=== PATIENT | female | born 1995 | race Caucasian/White ===

== ENCOUNTER → 2023-04-23 10:11 | Outpatient (CLI) | payer OTHER, SELFPAY ==
--- NOTE | 2023-04-23 10:14 | DI.US.S_ITS ---
PROCEDURE: US PELVIC COMPLETE INDICATIONS: BLEEDING TECHNIQUE: Real-time scanning was performed of the pelvic organs, with image documentation. Additional endovaginal scanning was necessary due to incomplete visualization of the adnexal and endometrial structures by transabdominal scanning. COMPARISON: None. FINDINGS: Uterus: Uterus is retroverted and normal in size at 8.8 x 5.5 x 6.6 cm. The myometrium is homogeneous. The endometrium measures 26 mm combined thickness. Heterogeneous endometrial echo complex. Ovaries: The right ovary measures 2.9 x 1.2 x 1.4 cm, with a calculated ovarian volume of 2.6 cc. The left ovary measures 3.9 x 1.9 x 2.7 cm, with a calculated ovarian volume of 10.2 cc. The ovaries have a normal sonographic appearance. Less than 12 follicles can be seen in each ovary. No adnexal masses are seen. Other: No pathologic free abdominal or pelvic fluid. IMPRESSION: 1. Thickened and heterogeneous endometrial echo complex measuring 26 mm. Consider endometrial sampling and short-term follow-up ultrasound. 2. The ovaries are normal in appearance. We strive to produce accurate, complete, and clear reports of imaging services. To assist us in improving patient care, this report was composed using standard report templates and voice recognition software. Therefore, it may contain abnormal punctuation, insertions and/or omissions. Occasional wrong-word or sound-alike substitutions may occur. Though we review the report and make efforts to correct it, we do recommend that the report be read carefully in proper context to recognize any text inaccuracies. Dictated by: Mina Mon M.D. on 04/23/2023 at 11:36 Approved by: Mina Mon M.D. on 04/23/2023 at 11:38
== END ==
PROVIDERS: PCP Family Medicine; Referring Provider Obstetrics & Gynecology; Visit Provider Obstetrics & Gynecology
DX: O20.9 Hemorrhage in early pregnancy, unspecified (principal); Z3A.09 9 weeks gestation of pregnancy
CPT/HCPCS: 76830; 76856; 93976

== ENCOUNTER → 2023-05-08 15:50 | Outpatient (CLI) | payer OTHER, SELFPAY ==
[2023-05-08 16:49] LABS: Add Manual Diff / Slide Review NO; Basophils Absolute Auto 100 /uL (0-100); Basophils Percent Auto 0.5 % (0-2); Eosinophils Absolute Auto 100 /uL (0-450); Eosinophils Percent Auto 1.4 % (2-4); Hemoglobin 10.3 g/dL (12.0-16.0); Lymphocytes Absolute Auto 1900 /uL (1100-4500); Lymphocytes Percent Auto 17.8 % (25-40); Mean Corpuscular HGB Conc 34.3 % (30-36); Mean Corpuscular Hemoglobin 28.4 PG (26-34); Mean Corpuscular Volume 82.7 fL (80-100); Monocytes Absolute Auto 800 /uL (0-900); Monocytes Percent Auto 7.8 % (3-14); Neutrophils Absolute Auto 7800 /uL (1500-7000); Neutrophils Percent Auto 72.5 % (50-75); Platelet Count 318 X10^3/uL (150-400); Red Blood Cell Count 3.62 X10^6/uL (4.0-5.2); Red Cell Distribution Width 13.1 % (11.6-14.8); White Blood Cell Count 10.7 X10^3/uL (4.5-11.0)
[2023-05-12 08:18] LABS: Factor VIII Activity 110 % (56-140); von Willebrand Activity 71 % (50-200); von Willebrand Antigen 96 % (50-200)
[2023-05-21 13:11] LABS: PTT 27.4
== END ==
PROVIDERS: PCP Family Medicine; Referring Provider Student in an Organized Health Care Education/Training Program; Visit Provider Student in an Organized Health Care Education/Training Program
DX: Z87.59 Personal history of other complications of pregnancy, childbirth and the puerperium (principal)
CPT/HCPCS: 36415; 85025; 85240; 85246; 85730

== ENCOUNTER 2023-05-10 08:13 | Day surgery (SDC) | payer OTHER, SELFPAY ==
--- NOTE | 2023-05-10 | PATH_ITS ---
[facility] Accession Number: [id number] No. of containers..01 Tissue . 01 Material submitted: . uterus - PRODUCTS OF UTERUS . 01 Diagnosis: Products Of Uterus: Poorly preserved products of conception identified. Most chorionic villi demonstrate necrotic changes. Background fibroinflammatory debris and scant portions of benign proliferative endometrium. [facility] 05/23/2023 1631 Local . 01 Electronically signed: . Maliha Linn MD, Pathologist NPI- [id number] . 01 Gross description: . The specimen is received in formalin, labeled with the patient's name, , and products of uterus, and consists of multiple navas, spongy soft tissue fragments admixed with hemorrhagic material aggregating to 6.4 x 6.0 x 2.1 cm. No tissue is identified. [employer]el[employer] sections are submitted in cassettes A1-A4. ([id number]) /FRR 05/11/2023 1856 Local . 01 Pathologist provided ICD-10: O02.89 . 01 CPT . 702135 Specimen Comment: A courtesy copy of this report has been sent to [facility] Pathology Performed at: 01 [facility] Cyt[facility] [address] [place] [address], [place], [place] [id number] MD Sergio Ray MD Phone: [phone]
[2023-05-10] MEDS: DOXYCYCLINE HYCLATE 100 MG TABLET 200 MG PO (08:46)
[2023-05-10 08:47] VITALS: BP 123/75; PULSE 102; RESP 17; TEMP 36.6; O2SAT 100
[2023-05-10] MEDS: LACTATED RINGERS 1,000 ML 42 ML IV (08:47)
--- NOTE | 2023-05-10 09:14 | SUR.OPER ---
Lithotomy on padded OR bed, head on pillow, arms secured on padded arm boards at <90 degrees abduction. Legs secured in padded yellow fins stirrups.
--- NOTE | 2023-05-10 09:14 | PM.PREOP ---
Pre-operative Note Interval Note History & Physical reviewed/Exam performed by Physician: Yes Changes to H&P: No H&P completed within 30 days and has changed as indicated here:: No changes since office encounter on 05/08/23. Pt desires to proceed with suction D&C.
[2023-05-10] MEDS: SILVER NITRATE STICK 1 EACH TOP (09:55)
[2023-05-10] MEDS: TRANEXAMIC ACID 1,000 MG in SODIUM CHLORIDE 0.9% 100 ML 200 MG IV (09:56)
[2023-05-10 10:05] VITALS: BP 123/85; PULSE 112; RESP 17; TEMP 36.3; O2SAT 100
[2023-05-10 10:10] VITALS: BP 117/84; PULSE 100; RESP 12; O2SAT 100
[2023-05-10 10:15] VITALS: BP 116/79; PULSE 100; RESP 14; TEMP 36.1; O2SAT 100
--- NOTE | 2023-05-10 12:26 | P.OP_ITS ---
Operative Date/Time/Diagnoses Date of procedure: 05/10/23 Time of procedure: 09:30 Pre-op diagnosis: Spontaneous with suspected retained products of conception Heavy vaginal bleeding Post-op diagnosis: same Procedure & Clinicians Procedure: Suction dilation and curettage Same procedure as scheduled: Yes Indications: 27yo [id number] s/p SAB at home on 04/22/23. She reports continuing to have significant bleeding, yesterday she passed several palm-sized clots. She feels tired and nauseous sometimes. Changing a pad every 2-3hrs. She states that she had significant hemorrhage after her delivery, requiring transfusion and multiple uterine sweeps hours after delivery. She also had heavy periods in the past, with one period lasting 9mo. She denies any family hx of bleeding disorders as far as she is aware. Surgeon: Luisana Brantley Click Yes if Unassisted: Yes Anesthesia Type: General Operative Notes Findings: Moderate amount of tissue and clot evacuated from the uterus. Uterine bleeding was slow at the end of the case. Specimen(s): other (uterine contents) Estimated Blood Loss (mL): 100 Blood products transfused: none Procedure in detail: The risks, benefits, indications and alternatives of the procedure were reviewed with the patient and informed consent was obtained. The pt was taken to the operating room where general anesthesia with LMA was obtained without difficulty. The pt was then placed in the low lithotomy position using gel- padded Audie Stirrups. The pt was then prepped and draped in the sterile fashion. A sterile speculum was placed in the patient?s vagina and the cervix was visualized.? A single tooth tenaculum was used to grasp the anterior lip of the cervix. The cervix was already dilated to allow a 7mm curved curette. This was then introduced into the uterine cavity and gently advanced to the uterine fundu s. The suction device was then activated to 60mmHg and the catheter was rotated to clear the uterus of products of conception. Several passes were performed with a moderate amount of tissue & clot obtained. All tissue was sent to pathology for review. The single tooth tenaculum was then removed from the anterior lip of the cervix. The tenaculum sites were noted to be hemostatic with pressure and silver nitrate. Given her bleeding history, and continued slow bleeding from the uterus, she was given 1g TXA IV. All instruments were then removed from the patient?s vagina. At the completion of the case the sponge and needle counts were correct x 2. The patient tolerated the procedure well and was taken to the PACU in stable condition. Complications: none Post-operative Condition: stable Disposition: PACU Plan for aftercare: Follow-up in 2-3 weeks in the clinic.
== END 2023-05-10 10:42 | disposition home or self-care (01) ==
PROVIDERS: PCP Family Medicine; Referring Provider Student in an Organized Health Care Education/Training Program; Visit Provider Student in an Organized Health Care Education/Training Program
PROC: (CPT 58120; principal; 2023-05-10 09:15)
DX: O03.1 Delayed or excessive hemorrhage following incomplete spontaneous abortion (principal); O90.81 Anemia of the puerperium; D62 Acute posthemorrhagic anemia; O02.89 Other abnormal products of conception
CPT/HCPCS: 59812; 86850; 86870; 86900; 86901; J1100; J2250; J2405; J2704; J3010

== ENCOUNTER → 2023-06-22 12:31 | Outpatient (CLI) | payer OTHER, SELFPAY | PROVIDERS: PCP Family Medicine; Referring Provider Student in an Organized Health Care Education/Training Program; Visit Provider Student in an Organized Health Care Education/Training Program | DX: N96 Recurrent pregnancy loss (principal) | CPT/HCPCS: 36415; 82397 ==

== ENCOUNTER → 2023-09-19 10:12 | Outpatient (CLI) | payer OTHER, SELFPAY ==
[2023-09-19 15:15] LABS: Urine N gonorrhoeae NOT DETECTED
[2023-09-19 15:19] LABS: Urine Chlamydia NOT DETECTED
== END ==
PROVIDERS: PCP Family Medicine; Visit Provider Student in an Organized Health Care Education/Training Program
DX: Z11.3 Encounter for screening for infections with a predominantly sexual mode of transmission (principal); Z34.81 Encounter for supervision of other normal pregnancy, first trimester; Z3A.09 9 weeks gestation of pregnancy
CPT/HCPCS: 87491; 87591

== ENCOUNTER → 2023-10-09 10:29 | Outpatient (CLI) | payer OTHER, SELFPAY ==
[2023-10-09 11:45] LABS: Add Manual Diff / Slide Review NO; Basophils Absolute Auto 0 /uL (0-100); Basophils Percent Auto 0.4 % (0-2); Eosinophils Absolute Auto 100 /uL (0-450); Eosinophils Percent Auto 1.3 % (2-4); Hematocrit 35.3 % (36-46); Hemoglobin 11.2 g/dL (12.0-16.0); Lymphocytes Absolute Auto 1400 /uL (1100-4500); Lymphocytes Percent Auto 15.2 % (25-40); Mean Corpuscular HGB Conc 31.8 % (30-36); Mean Corpuscular Volume 69.4 fL (80-100); Monocytes Absolute Auto 800 /uL (0-900); Monocytes Percent Auto 8.7 % (3-14); Neutrophils Absolute Auto 6700 /uL (1500-7000); Neutrophils Percent Auto 74.4 % (50-75); Platelet Count 273 X10^3/uL (150-400); Red Blood Cell Count 5.09 X10^6/uL (4.0-5.2)
[2023-10-09 11:58] LABS: Natera Collection Specimen Collected
[2023-10-09 11:59] LABS: Alanine Aminotransferase 13 IU/L (<35); Aspartate Aminotransferase 23 IU/L (14-36); BUN Creatinine Ratio 12.1 (6-22); Blood Urea Nitrogen 7 mg/dL (7-17); Estimated Glomerular Filt Rate > 60 mL/min (>60); Uric Acid 3.2 mg/dL (2.5-6.2)
[2023-10-09 12:11] LABS: Anisocytosis 2+; Microcytosis 1+
[2023-10-09 12:12] LABS: Ovalocytes 1+
[2023-10-09 12:26] LABS: Thyroid Stimulating Hormone 1.14 uIU/mL (0.47-4.68)
[2023-10-10 09:28] LABS: RPR Screen Non Reactive (Non Reactive); Varicella IgG Antibody 830 index (Immune >165)
[2023-10-10 16:38] LABS: Hepatitis B Surface Antigen NEGATIVE s/c (NEGATIVE); Rubella Antibody IgG > 350.0 IU/mL (>15)
[2023-10-10 16:55] LABS: HIV 1 & 2 Ab/Ag 4th Gen Combo NEGATIVE (NEGATIVE); Hep C Virus Ab w/Reflex Quant NEGATIVE s/c (NEGATIVE)
== END ==
LOC: LAB 10:30
PROVIDERS: PCP Family Medicine; Referring Provider Student in an Organized Health Care Education/Training Program; Visit Provider Student in an Organized Health Care Education/Training Program
DX: O09.299 Supervision of pregnancy with other poor reproductive or obstetric history, unspecified trimester (principal)
CPT/HCPCS: 36415; 80055; 82565; 84439; 84443; 84450; 84460; 84520; 84550; 86787; 86803; 86850; 86900; 86901; 87086; 87389

== ENCOUNTER → 2023-12-19 10:25 | Outpatient (CLI) | payer OTHER, SELFPAY | LOC: LAB 10:26 | PROVIDERS: PCP Family Medicine; Referring Provider Student in an Organized Health Care Education/Training Program; Visit Provider Student in an Organized Health Care Education/Training Program | DX: Z34.82 Encounter for supervision of other normal pregnancy, second trimester (principal); Z3A.16 16 weeks gestation of pregnancy | CPT/HCPCS: 36415; 82105 ==

== ENCOUNTER → 2024-01-25 08:28 | Outpatient (CLI) | payer OTHER, SELFPAY ==
[2024-01-25 09:46] LABS: Hematocrit 37.3 % (36-46); Hemoglobin 12.5 g/dL (12.0-16.0)
[2024-01-25 11:30] LABS: GTT (PREG) 1 Hour PP 50gm Dose 116 mg/dL (76-139)
== END ==
PROVIDERS: PCP Family Medicine; Referring Provider Student in an Organized Health Care Education/Training Program; Visit Provider Student in an Organized Health Care Education/Training Program
DX: Z34.82 Encounter for supervision of other normal pregnancy, second trimester (principal); Z3A.26 26 weeks gestation of pregnancy
CPT/HCPCS: 36415; 82950; 85014; 85018; 86850

== ENCOUNTER → 2024-02-17 06:43 | Outpatient (CLI) | payer OTHER, SELFPAY ==
--- NOTE | 2024-02-17 06:44 | DI.US.S_ITS ---
PROCEDURE: US OB LIMITED INDICATIONS: di/di twins, growth OUTSIDE/PRIOR DATING DATA: Last menstrual period (LMP): 07/24/2023. LMP-based estimated date of delivery (LEX): 04/23/2024. First dating scan (date and location): 09/19/2023. Estimated date of delivery (LEX) from first dating scan: 05/08/2024. The calculations are made using the ultrasound LEX of 05/08/2024. TECHNIQUE: Real-time scanning was performed of the fetuses, with image documentation and biometric measurements. Endovaginal scanning: Not performed COMPARISON: None. FINDINGS: General: An intrauterine dichorionic-diamniotic twin is present, as evidenced by separate placentas, differing sexes, or an intervening membrane of greater than 2 mm. Maternal cervical canal: 4 cm long. Normal lower limit is 2.5 cm. FETUS A: Fetus is located on the maternal left side, and is in breech presentation. Largest amniotic fluid pocket: 10.1 cm; normal range is 2-8 cm. Largest pocket 4.4 cm. Placental position is posterior, without previa. heart rate: 140 beats per minute. biometrics: Biparietal diameter: 7.7 cm, 31 weeks 0 days Head circumference: 28.4 cm, 31 weeks 1 day Abdominal circumference: 25.9 cm, 30 weeks 0 days Femur length: 5.9 cm, 30 weeks 4 days Clinically estimated gestational age: 29 weeks 6 days Composite gestational age from present scan: 30 weeks 5 days. Estimated weight and percentile: 1562 g, 56 percentile. FETUS B: Fetus is located on the maternal right side, and is in vertex presentation. Largest amniotic fluid pocket: 13.5 cm; normal range is 2-8 cm. Largest pocket 4.6 cm Placental position is posterior, without previa. heart rate: 132 beats per minute. biometrics: Biparietal diameter: 7.4 cm, 29 weeks 4 days Head circumference: 26.9 cm, 29 weeks 2 days Abdominal circumference: 24.7 cm, 28 weeks 6 days Femur length: 5.7 cm, 29 weeks 5 days Clinically estimated gestational age: 29 weeks 6 days Composite gestational age from present scan: 29 weeks 3 days. Estimated weight and percentile: 1360 g, 19th percentile. IMPRESSION: 1. Living intrauterine dichorionic diamniotic twin gestation . 2. Normal placentas and amniotic fluid. We strive to produce accurate, complete, and clear reports of imaging services. To assist us in improving patient care, this report was composed using standard report templates and voice recognition software. Therefore, it may contain abnormal punctuation, insertions and/or omissions. Occasional wrong-word or sound-alike substitutions may occur. Though we review the report and make efforts to correct it, we do recommend that the report be read carefully in proper context to recognize any text inaccuracies. Dictated by: Franklin Norwood M.D. on 02/17/2024 at 9:22 Approved by: Franklin Norwood M.D. on 02/17/2024 at 9:32
== END ==
LOC: US 06:43
PROVIDERS: PCP Family Medicine; Referring Provider Student in an Organized Health Care Education/Training Program; Visit Provider Student in an Organized Health Care Education/Training Program
DX: O30.043 Twin pregnancy, dichorionic/diamniotic, third trimester (principal); Z3A.29 29 weeks gestation of pregnancy
CPT/HCPCS: 76812; 76815

== ENCOUNTER → 2024-03-20 06:49 | Outpatient (CLI) | payer OTHER, SELFPAY ==
--- NOTE | 2024-03-20 06:50 | DI.US.S_ITS ---
PROCEDURE: US OB LIMITED INDICATIONS: DI/DI TWINS-REPEAT GROWTH OUTSIDE/PRIOR DATING DATA: Last menstrual period (LMP): 07/24/2023. LMP-based estimated date of delivery (LEX): 04/23/2024. First dating scan (date and location): 09/19/2023. Estimated date of delivery (LEX) from first dating scan: 04/28/2024. The calculations are made using the ultrasound LEX of 04/28/2024. TECHNIQUE: Real-time scanning was performed of the fetuses, with image documentation and biometric measurements. Endovaginal scanning: Not performed COMPARISON: [facility], OB LIMITED, 02/17/2024, 6:59. FINDINGS: General: An intrauterine dichorionic-diamniotic twin is present, as evidenced by separate placentas, differing sexes, or an intervening membrane of greater than 2 mm. Fetus A amniotic fluid index: 11.5 cm. Fetus B amniotic fluid index: 15.7 cm Maternal cervical canal: 4.7 cm long. Normal lower limit is 2.5 cm. FETUS A: Fetus is located on the maternal maternal left side, and is in vertex presentation. Largest amniotic fluid pocket: 5.6 cm, normal is 2-8 cm. Placental position is posterior , without previa. heart rate: 152 beats per minute. biometrics: Biparietal diameter: 8.8 cm, 35 weeks 5 days Head circumference: 32.1 cm, 36 weeks 1 day Abdominal circumference: 28.8 cm, 32 weeks 6 days Femur length: 6.4 cm, 33 weeks 2 days Clinically estimated gestational age: 34 weeks 3 days Composite gestational age from present scan: 34 weeks 4 days Estimated weight and percentile: 2215 g, 21st percentile FETUS B: Fetus is located on the maternal maternal right side, and is in vertex presentation. Largest amniotic fluid pocket: 5.2 cm, normal is 2-8 cm. Placental position is posterior, without previa. heart rate: 136 beats per minute. biometrics: Biparietal diameter: 8.3 cm, 33 weeks 2 days Head circumference: 30.1 cm, 34 weeks 1 day Abdominal circumference: 31.6 cm, 35 weeks 4 days Femur length: 6.5 cm, 33 weeks 4 days Clinically estimated gestational age: 34 weeks 3 days Composite gestational age from present scan: 34 weeks 1 day Estimated weight and percentile: 2484 g,52 percentile IMPRESSION: Living 3rd trimester twin intrauterine with no sonographic evidence of complications. Normal interval growth. We strive to produce accurate, complete, and clear reports of imaging services. To assist us in improving patient care, this report was composed using standard report templates and voice recognition software. Therefore, it may contain abnormal punctuation, insertions and/or omissions. Occasional wrong-word or sound-alike substitutions may occur. Though we review the report and make efforts to correct it, we do recommend that the report be read carefully in proper context to recognize any text inaccuracies. Dictated by: Jaspreet Mohamud M.D. on 03/20/2024 at 13:23 Approved by: Jaspreet Mohamud M.D. on 03/20/2024 at 13:31
== END ==
PROVIDERS: PCP Family Medicine; Referring Provider Student in an Organized Health Care Education/Training Program; Visit Provider Student in an Organized Health Care Education/Training Program
DX: O30.043 Twin pregnancy, dichorionic/diamniotic, third trimester (principal); Z3A.34 34 weeks gestation of pregnancy
CPT/HCPCS: 76812; 76815

== ENCOUNTER 2024-03-24 11:55 | Outpatient (CLI) | payer OTHER, SELFPAY | END 2024-03-24 12:45 | disposition home or self-care (01) | LOC: LABOR 12:30 → OB 03-26 08:16 | PROVIDERS: PCP Family Medicine; Referring Provider Student in an Organized Health Care Education/Training Program; Visit Provider Student in an Organized Health Care Education/Training Program | DX: O60.03 Preterm labor without delivery, third trimester (principal); O30.043 Twin pregnancy, dichorionic/diamniotic, third trimester; Z3A.35 35 weeks gestation of pregnancy | CPT/HCPCS: 59025; G0378; G0379 ==

== ENCOUNTER → 2024-03-30 09:41 | Outpatient (CLI) | payer OTHER, SELFPAY ==
[2024-03-31 09:21] LABS: Strep Grp B PCR NEG for Grp B Strep
== END ==
PROVIDERS: PCP Family Medicine; Visit Provider Student in an Organized Health Care Education/Training Program
DX: Z34.03 Encounter for supervision of normal first pregnancy, third trimester (principal); Z3A.35 35 weeks gestation of pregnancy
CPT/HCPCS: 87653

== ENCOUNTER 2024-03-30 09:53 | Outpatient (CLI) | payer OTHER, SELFPAY | END 2024-03-30 10:50 | disposition home or self-care (01) | LOC: OB 04-01 10:28 | PROVIDERS: PCP Family Medicine; Referring Provider Student in an Organized Health Care Education/Training Program; Visit Provider Student in an Organized Health Care Education/Training Program | DX: O30.003 Twin pregnancy, unspecified number of placenta and unspecified number of amniotic sacs, third trimester (principal); Z3A.35 35 weeks gestation of pregnancy | CPT/HCPCS: 59025; 87653; G0378; G0379 ==

== ENCOUNTER 2024-04-14 10:09 | Inpatient (IN) | payer OTHER, SELFPAY ==
[2024-04-14] VITALS (7 sets, daily range): BP systolic 103–141; BP diastolic 56–81; PULSE 85–104; RESP 12–18; TEMP 36.1–36.2; O2SAT 99–100
[2024-04-14] MEDS: LACTATED RINGERS 1,000 ML 999 ML IV ×2 (10:53→13:27)
[2024-04-14 10:58] LABS: Add Manual Diff / Slide Review NO; Basophils Absolute Auto 0 /uL (0-100); Basophils Percent Auto 0.2 % (0-2); Eosinophils Absolute Auto 100 /uL (0-450); Eosinophils Percent Auto 0.7 % (2-4); Hematocrit 42.6 % (36-46); Hemoglobin 14.5 g/dL (12.0-16.0); Lymphocytes Absolute Auto 1300 /uL (1100-4500); Mean Corpuscular HGB Conc 33.9 % (30-36); Mean Corpuscular Hemoglobin 30.4 PG (26-34); Mean Corpuscular Volume 89.7 fL (80-100); Monocytes Absolute Auto 1100 /uL (0-900); Monocytes Percent Auto 8.6 % (3-14); Neutrophils Absolute Auto 10400 /uL (1500-7000); Neutrophils Percent Auto 80.5 % (50-75); Platelet Count 185 X10^3/uL (150-400); Red Blood Cell Count 4.76 X10^6/uL (4.0-5.2); Red Cell Distribution Width 13.8 % (11.6-14.8); White Blood Cell Count 12.9 X10^3/uL (4.5-11.0)
[2024-04-14 11:34] LABS: Alanine Aminotransferase 12 IU/L (<35); Albumin 4.1 g/dL (3.5-5.0); Albumin Globulin Ratio 1.3 (1.0-2.8); Alkaline Phosphatase 209 U/L (38-126); Aspartate Aminotransferase 28 IU/L (14-36); BUN Creatinine Ratio 12.3 (6-22); Bilirubin Total 0.8 mg/dL (0.2-1.3); Blood Urea Nitrogen 7 mg/dL (7-17); Calcium 9.3 mg/dL (8.4-10.2); Carbon Dioxide 21 mmol/L (22-32); Chloride 105 mmol/L (98-107); Estimated Glomerular Filt Rate > 60 mL/min (>60); Globulin 3.2 g/dL (1.7-4.1); Glucose 79 mg/dL (70-100); HEMOLYSIS < 15 (0-50); Potassium 3.9 mmol/L (3.4-5.1); Sodium 133 mmol/L (137-145); Total Protein 7.3 g/dL (6.3-8.2)
--- NOTE | 2024-04-14 11:57 | P.HPOB_ITS ---
OB HPI Date/Time Date of admission: 04/14/24 Date Patient Seen: 04/14/24 Time Patient Seen: 11:58 History of Present Condition Chief complaint: Primary - Twins : 4 Para: 1 Estimated Date of Delivery: 04/28/24 Estimated Gestational Age (weeks): 38+0 Narrative: Sami Rosenberg is a 28 year old female Comments: admitted today for planned primary due to twin gestation. Pt reports feeling well, no complaints today. Indications Operative indications ( section): multiple gestation History of Present care: good care Dating criteria: LMP confirmed by 1st trimester US Ultrasounds: normal mid trimester US Obstetrical complications: none Medical complications: none Narrative: Ultrasound Ultrasound Details:: Dating 09/19/23: diamniotic, dichorionic twin gestation with thick intertwin membrane; baby A measuring 8+0wks with FHR 166; baby B measuring 8+2wks with FHR 172; normal appearing uterus and cervix Anatomy US with MFM 12/13/23: A- normal anatomy, posterior placenta, no EFW provided; B- normal anatomy, posterior placenta, EFW 38%ile Specific Issues/Plans [x] cfDNA- low risk, boy/girl (Chris, Blaze); [ x] MSAFP- neg Di/di twins--> [ x?] Twin meds (PNV, folic acid, ASA, iron, Ca/VitD);? [?x ] Level II sono- MFM referral;? [? x] Growth sonos q4wks (13% discordant 02/17, 11% discordant 03/23);? [?x ] Discuss delivery route/timing- likely ;? [?x ]? weekly NST/SDP (36 weeks if concordant, 32 weeks discordant);?[x] delivery at 38 weeks?(submitted surgical request for 04/14) Rh negative--> Rh negative, thus rhogam deferred at 28wks Prior Preeclampsia-->? [x ] 81mg ASA at 12wks--> increased to 162mg at 16wks;? [x? ] Baseline Pre-E labs & Pr/Cr ratio Hx of PPH with blood transfusion after VAVD--> consider T&C on admission in labor Sixto (works at [employer]) Assigned to Fercho Preadmission Labs Blood type: 0 (-) negative -: Antibody screen: negative, Cystic fibrosis screen: unknown, GBS status: negative, HBsAG: negative, HIV: negative, HSV 1: unknown, HSV 2: unknown and RPR/VDLR: negative -: Chlamydia screen: not detected and Gonorrhea screen: not detected -: Rubella: immune and Varicella: immune HCT: 42.6 HCAB: negative PAP: Normal 1 hr GTT: 116 Evaluation Evaluation Contraction Frequency (minutes): 4 Comments: Baby A- FHR 140, moderate variability, + accels, no decels Baby B- FHR 130, moderate variability, + accels, no decels PFSH Medical History (Updated 11/12/23 @ 11:49 by Luisana rBantley DO) Recurrent loss History of hemorrhage Spontaneous Anemia due to acute blood loss hemorrhage Irregular menses Preeclampsia Surgical History (Updated 04/01/23 @ 08:05 by Francine Gordon RN) [place] teeth extracted H/O exploratory laparotomy Family History (Updated 04/01/23 @ 08:08 by Francine Gordon, JEYSON) Father Diabetes mellitus Kidney failure Hypertension Heart attack Stroke Mother Heart attack Grandfather Heart attack Social History marital status: number of children: 1 household members: spouse and children lives independently: Yes caregiver/support person: Yes housing: house pets and animals: Yes (2 dogs) education level: college occupational status: employed current occupational exposures/hazards: No special jose needs: No travel history: recent seatbelt use: always water heater temp set < 120 deg: Yes working smoke detector in home: Yes fire extinguisher in home: Yes carbon monox detector in home: Yes firearms in home: No do you feel safe at home: Yes Smoking Status: Never smoker second hand exposure: No alcohol intake: former substance use type: does not use during the past year weight has: increased > 10 lbs well-balanced diet: about half the time daily servings fruits/ve-4 caffeine: Yes (1 cup coffee in AM) Type(s) of exercise: walking and weight lifting frequency: 3-4 times per week Meds Home Medications and Allergies Home Medications Medication Instructions Recorded Confirmed Type docosahexaenoic acid 200 mg See Rx Instructions .Route .COMPLEX 10/17/23 04/14/24 History capsule ( DHA) ferrous sulfate 137 mg (45 mg See Rx Instructions .Route .COMPLEX 10/17/23 04/14/24 History iron) tablet,extended release (Slow Fe) [id number] antigen-AS01E 0.5 ml IM ONCE mother #1 03/24/24 04/14/24 Rx adjuvant(PF) 120 mcg/0.5 mL IM ea suspension, kit Allergies Allergy/AdvReac Type Severity Reaction Status Date / Time No Known Drug Allergies Allergy Verified 04/14/24 11:19 Review of Systems Review of Systems ROS: Yes All systems reviewed with the patient and are negative except as otherwise documented OB Exam Vital signs Blood Pressure: 132/80 Pulse Rate: 104 Temperature: 97.0 F HENMT Head: normal to inspection Resp Effort & Inspection: normal respiratory effort and able to speak in complete sentences Extremities Lower extremity: Yes normal to inspection GI Other: gravid, nontender, nondistended Objective Labs 04/14/24 10:30 04/14/24 10:30 Labs: Laboratory Results - last 24 hr 04/14/24 10:30 WBC 12.9 H RBC 4.76 Hgb 14.5 Hct 42.6 MCV 89.7 MCH 30.4 MCHC 33.9 RDW 13.8 Plt Count 185 Neut % (Auto) 80.5 H Lymph % (Auto) 10.0 L Powell % (Auto) 8.6 Eos % (Auto) 0.7 L Baso % (Auto) 0.2 Neut # (Auto) 01288 H Lymph # (Auto) 1300 Powell # (Auto) 1100 H Eos # (Auto) 100 Baso # (Auto) 0 Sodium 133 L Potassium 3.9 Chloride 105 Carbon Dioxide 21 L BUN 7 Creatinine 0.57 Estimated GFR > 60 BUN/Creatinine Ratio 12.3 Glucose 79 Calcium 9.3 Total Bilirubin 0.8 AST 28 ALT 12 Alkaline Phosphatase 209 H Total Protein 7.3 Albumin 4.1 Globulin 3.2 Albumin/Globulin Ratio 1.3 Blood Type O Negative Antibody Screen Negative Crossmatch See Detail Assessment and Plan Assessment and Plan Assessment and Plan narrative: 28yo at 38+0wks admitted for planned primary due to twin gestation. -CBC, T&C on admission -NST on admission -plan for neuraxial anesthesia -2g Ancef for ppx -PPH risk high given hx of PPH with transfusion, delivery, and twin gestation; typed & crossed for 2 units, with [address] -VTE risk low, SCDs with epidural -will move to OR for delivery once all teams ready counseling: It was explained to the patient that a section is a surgery to deliver the baby through an incision in the abdominal wall and uterus.? All procedures can be associated with risk and unforeseen complications, which can be immediate or delayed.? Risks and complications of section include, but are not limited to:? infection of the uterus, pelvic organs, or skin; inadvertent injury to internal organs such as the bowel, bladder, or possibly even the baby; blood loss, transfusion, and/or life-threatening hemorrhage requiring hysterectomy; blood clots in the legs, pelvic organs, or lungs; adverse reaction to medications or anesthesia during surgery; development of placenta accreta spectrum in a subsequent ; and increased risk of section in a subsequent . Time-Based Coding :: [20min] spent with patient and on the chart (including review of chart, obtaining history, exam, reviewing outside data, placing orders, documenting exam and treatment plan, and counseling patient) on [04/14/24].
[2024-04-14] MEDS: CITRIC ACID/SODIUM CITRATE 15 ML SOLUTION 30 ML PO (12:08)
--- NOTE | 2024-04-14 12:09 | SUR.OPER ---
Supine on padded OR bed, head on pillow, arms secured on padded arm boards at <90 degrees abduction, legs uncrossed, safety belt at thigh, tape over blanket over lower legs. BUMP UNDER PATIENTS RIGHT HIP
[2024-04-14] MEDS: CEFAZOLIN 2 GM/100 ML PREMIX 100 ML IV (12:43)
--- NOTE | 2024-04-14 13:44 | PM.OBCS.1 ---
Operative Date/Time/Diagnoses Date of procedure: 04/14/24 Time of procedure: 13:00 Pre-op diagnosis: 1. Dichorionic diamniotic twin gestation at 38+0 weeks 2. History of pre-eclampsia 3. History of hemorrhage 4. History of vacuum assisted vaginal delivery 5. Recurrent loss Post-op diagnosis: same Procedure & Clinicians Procedure: Primary low transverse section Same procedure as scheduled: Yes Indications: 28yo at 38+0wks with di/di twins, counseled and consented for primary delivery given multiple gestation with unstable lie of the twins. Surgeon: Luisana Brantley Click Yes if Unassisted: No Lagging Machine Operator: Ronda Cosme Reason for Lagging Machine Operator: Lagging Machine Operator was necessary for timely, efficient, and safe completion of the procedure. Anesthesia Type: Spinal Operative Notes Findings: Normal-appearing uterus and bilateral fallopian tubes and ovaries. Clear fluid noted with delivery of baby A, which was a viable male infant in breech presentation with APGARs 8/9 and weighing 2827g. Clear fluid noted with delivery of baby B, which was a viable female infant in breech presentation with APGARs 9/9 and weighing 2719g. Specimen(s): cord blood Intraoperative meds administered: Duramorph, Ketorolac and Tranexamic acid Applied: Catheter Estimated Blood Loss (mL): 900 (QBL 1049) Blood products transfused: none Procedure in detail: The risks, benefits, indications and alternatives of the procedure were reviewed with the patient and informed consent was obtained. The patient was taken to the operating room where spinal anesthesia was obtained without difficulty and was found to be adequate. Sequential compression devices were placed bilaterally for VTE prophylaxis. She was then prepped and draped in the normal, sterile fashion in the dorsal supine position with a leftward tilt. She received 2g Ancef for surgical prophylaxis, as well as 1g of TXA prophylactically. A Pfannenstiel skin incision was then made with the scalpel and carried through to the underlying layer of fascia. The fascia was digitally. The rectus muscles were then at the midline. The peritoneum was identified, and entered digitally. The peritoneal incision was then extended horizontally, superiorly and inferiorly, with good visualization of the bladder. The bladder blade was then inserted. The lower uterine segment was incised in a transverse fashion with the scalpel. The uterine incision was then extended manually in a cephalad/caudad direction. The amniotic sac of baby A was artificially ruptured, productive of clear fluid. The bladder blade was then removed. The infant?s feet were grasped and brought through the hysterotomy. A blue towel was placed around the sacrum and Loveset?s maneuver was performed to the level of the scapula.? The bilateral arms were swept and delivered followed by the head using the Wnztvolzb-Tswgene-Lhqp maneuver. The cord was doubly clamped and cut after a 60sec delay with the infant handed off to the waiting pediatrics team. The amniotic sac of baby B was then artificially ruptured, productive of clear fluid. The ?s feet were grasped and brought through the hysterotomy. A blue towel was placed around the sacrum and Loveset?s maneuver was performed to the level of the scapula.? The bilateral arms were swept and delivered followed by the head using the Oyreixjva-Gvxvaxf-Hxcq maneuver. The cord was doubly clamped and cut after a 60sec delay with the handed off to the waiting pediatrics team. The placentas were then removed spontaneously with gentle traction on the umbilical cords. The uterus was then exteriorized and cleared of all clots and debris. The uterine incision was repaired with 0-vicryl in a running, locked fashion. A second layer using 0-monocryl was then used to imbricate the hysterotomy with excellent hemostasis achieved. The uterus was returned to the abdomen, and a small area of bleeding was noted at the left side of the hysterotomy, which was suture ligated with a figure of eight. The hysterotomy was then noted to be hemostatic. The paracolic gutters were cleared of all clot and debris. The fascia was reapproximated with 0-vicryl in a running fashion. The subcutaneous layer was closed with 3-0 vicryl in simple, interrupted sutures. The skin was closed with 4-0 monocryl in a subcuticular fashion. The incision was then dressed with steri-strips and an Aquacel dressing was applied. At the completion of the case, a Crede maneuver was performed with good uterine tone and minimal vaginal bleeding noted.? The patient tolerated the procedure well. Sponge, lap and needle counts were correct x3. The patient was taken to the recovery room in stable condition. Complications: none Post-operative Condition: stable Disposition: PACU Aftercare: routine postop
[2024-04-14] MEDS: METHYLERGONOVINE 0.2 MG TABLET PO (15:55)
[2024-04-14] MEDS: LACTATED RINGERS 1,000 ML 100 ML IV (16:08)
[2024-04-14] MEDS: LANOLIN OINT 7 GM 1 APPLIC TOP (16:22)
--- NOTE | 2024-04-14 17:23 | PATH_ITS ---
[facility] Accession Number: [id number] No. of containers..01 Tissue . 01 Material submitted: . placenta - PLACENTA . 01 Clinical history: . DI/DI OR MONO/DI? . 01 Diagnosis: PLACENTA: Intact, fused twin placenta (735 grams). Diamniotic-dichorionic twin placenta. Larger portion of placenta with eccentrically inserted umbilical cord with the following features: - Villous architecture consistent with third trimester gestational age. - membranes; negative for chorioamnionitis or features of meconium staining. - Eccentrically inserted three vessel umbilical cord; negative for true knots, thrombi, funisitis or arteritis. Smaller portion of placenta with the following features: - Villous architecture consistent with third trimester gestational age. - membranes; negative for chorioamnionitis or features of meconium staining. - Centrally inserted three vessel umbilical cord; negative for true knots, thrombi, funisitis, or arteritis. No villitis, features of abruption or infarction. MRV 04/17/2024 1348 Local . 01 Electronically signed: . Amber Churchill MD, Pathologist NPI- [id number] . 01 Gross description: . Received in formalin with two identifiers and no site on jar, is a fused twin placenta with no clips or other identifying markers (735 grams, 24.4 x 19.1 x 1.6 cm) with a dividing membrane located approximately 60/40 with the larger portion arbitrarily designated baby A. The placenta has an ovoid appearance. . The membranes for both placentas are navas and translucent with no discoloration or thickening identified. A possible point of rupture is located 3.1 cm from the nearest placental disc edge of placenta B. The membranes insert at the margin. . Cord A (31.2 x 1.3 cm) inserts eccentrically 2.5 cm from the nearest placental disc edge with an index of approximately one twist per 5 cm. . Cord B (35.6 x 1.3 cm) inserts marginally and has leftward coil with an index of approximately two twists per 5 cm. Both cords are trivascular and unremarkable with no lesions identified. . The surface A is blue-serna with normal arborizing vasculature and white areas of discoloratoin located centrally occupying approximately 10% of the surface. surface B is blue-serna with normal arborizing vasculature and no lesions identified. . The maternal surface is apparently complete with diffuse white gritty areas consistent with calcification and no hemorrhage or lesions identified. The cut surfaces are red and spongy with no discolorations identified. . Compressor Technician sections are submitted as follows: A1: Baby A membrane roll and placental end of cord. A2: Baby A membrane roll and end of cord. A3: Baby B membrane roll and placental end of cord. A4: Baby B membrane roll and end of cord. A5: Dividing membrane. A6: Placenta A and maternal surface discoloration. A7-A8: Central full thickness unremarkable placents A. A9-A10: Central full thickness unremarkable placenta B. ([id number]) /[facility] 04/17/[address] [place] [address] . 01 Pathologist provided ICD-10: O43.90 . 01 CPT . 702659 Specimen Comment: A courtesy copy of this report has been sent to [facility] Pathology Performed at: [address] [facility], [place], [place] [id number] MD Sergio Ray MD Phone: [phone]
[2024-04-14] MEDS: ACETAMINOPHEN 325 MG TABLET 650 MG PO (19:26)
[2024-04-14] MEDS: KETOROLAC 30 MG/ML VIAL IV (19:27)
[2024-04-15] MEDS: LACTATED RINGERS 1,000 ML 100 ML IV (01:31)
[2024-04-15] MEDS: diphenhydrAMINE 50 MG/ML VIAL 25 MG IV ×2 (01:32→04:45)
[2024-04-15] MEDS: KETOROLAC 30 MG/ML VIAL IV ×2 (01:32→07:41)
[2024-04-15] MEDS: ACETAMINOPHEN 325 MG TABLET 650 MG PO ×4 (01:33→21:14)
[2024-04-15] MEDS: BUTORPHANOL 1 MG/ML VIAL 0.5 MG IV (05:16)
[2024-04-15 06:21] LABS: Add Manual Diff / Slide Review NO; Basophils Absolute Auto 0 /uL (0-100); Basophils Percent Auto 0.1 % (0-2); Eosinophils Absolute Auto 0 /uL (0-450); Eosinophils Percent Auto 0.3 % (2-4); Hematocrit 29.4 % (36-46); Lymphocytes Absolute Auto 1700 /uL (1100-4500); Lymphocytes Percent Auto 10.4 % (25-40); Mean Corpuscular HGB Conc 34.1 % (30-36); Mean Corpuscular Hemoglobin 30.4 PG (26-34); Mean Corpuscular Volume 89.2 fL (80-100); Monocytes Absolute Auto 1900 /uL (0-900); Monocytes Percent Auto 12.1 % (3-14); Neutrophils Absolute Auto 12200 /uL (1500-7000); Neutrophils Percent Auto 77.1 % (50-75); Platelet Count 156 X10^3/uL (150-400); Red Blood Cell Count 3.29 X10^6/uL (4.0-5.2); Red Cell Distribution Width 13.7 % (11.6-14.8); White Blood Cell Count 15.9 X10^3/uL (4.5-11.0)
--- NOTE | 2024-04-15 07:37 | PM.OBPN.1 ---
Subjective - OB Subjective Patient comments: pain well controlled and tolerating diet [place] baby status: doing well and nursing well [place] feeding status: exclusively breast feeding Narrative: Pt sitting on side of bed, states pain is well controlled, no longer experiencing lightheadedness or dizziness with stand/ambulation JAELEON per RN, tolerating diet, +ROBF Date Patient Seen: 04/15/24 Time Patient Seen: 07:30 Exam Vital Signs (past 8 hours): Oxygen Delivery Method Room Air Const General: cooperative and comfortable Orientation: alert, awake and oriented x3 Limitations: mental status not altered Chest Chest: normal inspection of the chest Resp Effort & Inspection: normal respiratory effort and able to speak in complete sentences Cardio Pulses: normal peripheral pulses GI Palpation: soft Other: incision c/d/i fundus firm << Umb Other: deferred, tolentino OUT Skin General: no rashes or lesions noted and pallor Neuro General: patient alert, patient awake and patient oriented x3 Extrem General: normal to inspection Psych Mental Status: mental status grossly normal Judgment: judgment good Objective Labs 04/15/24 06:10 04/14/24 10:30 Labs: Laboratory Results - last 24 hr 04/14/24 04/15/24 10:30 06:10 WBC 12.9 H 15.9 H RBC 4.76 3.29 L Hgb 14.5 10.0 L Hct 42.6 29.4 L MCV 89.7 89.2 MCH 30.4 30.4 MCHC 33.9 34.1 RDW 13.8 13.7 Plt Count 185 156 Neut % (Auto) 80.5 H 77.1 H Lymph % (Auto) 10.0 L 10.4 L [place] % (Auto) 8.6 12.1 Eos % (Auto) 0.7 L 0.3 L Baso % (Auto) 0.2 0.1 Neut # (Auto) 59751 H 32627 H Lymph # (Auto) 1300 1700 [place] # (Auto) 1100 H 1900 H Eos # (Auto) 100 0 Baso # (Auto) 0 0 Sodium 133 L Potassium 3.9 Chloride 105 Carbon Dioxide 21 L BUN 7 Creatinine 0.57 Estimated GFR > 60 BUN/Creatinine Ratio 12.3 Glucose 79 Calcium 9.3 Total Bilirubin 0.8 AST 28 ALT 12 Alkaline Phosphatase 209 H Total Protein 7.3 Albumin 4.1 Globulin 3.2 Albumin/Globulin Ratio 1.3 Blood Type O Negative Antibody Screen Negative Crossmatch See Detail Assessment & Plan Plan day: 1 plan OB: routine care and routine postop care Comments: 28yo POD1 s/p 1LTCS di/di TIUP, doing well Postop/ routine care, fully advanced with +ROBF Mild acute blood loss anemia without concern for active bleeding, pt initially symptomatic with first ambulation but this has resolved with euvolemia; continue to monitor, reassess for consideration of IV iron infusion in AM prior to discharge as indicated encouraged ambulation, abd binder, support PRN anticipate dc to home POD2-3 pending clinical course Time-Based Coding :: [TOTAL MINUTES] spent with patient and on the chart (including review of chart, obtaining history, exam, reviewing outside data, placing orders, documenting exam and treatment plan, and counseling patient) on [DATE].
[2024-04-15] MEDS: PRENATAL VIT,CALC/IRON/FOLIC 1 TABLET 1 TAB PO (09:05)
[2024-04-15] MEDS: DOCUSATE 100 MG CAPSULE PO (09:05)
[2024-04-15] MEDS: IBUPROFEN 600 MG TABLET PO ×2 (15:14→21:15)
[2024-04-15] MEDS: OXYCODONE IR 5 MG TABLET PO ×2 (18:50→23:11)
[2024-04-16] MEDS: ACETAMINOPHEN 325 MG TABLET 650 MG PO ×3 (03:07→15:11)
[2024-04-16] MEDS: OXYCODONE IR 5 MG TABLET PO ×3 (03:08→15:12)
[2024-04-16] MEDS: IBUPROFEN 600 MG TABLET PO ×3 (03:08→15:12)
[2024-04-16] MEDS: DOCUSATE 100 MG CAPSULE PO (07:29)
[2024-04-16] MEDS: PRENATAL VIT,CALC/IRON/FOLIC 1 TABLET 1 TAB PO (07:29)
--- NOTE | 2024-04-16 11:06 | P.DS_ITS ---
Discharge Providers Provider Date of admission: 04/14/24 10:09 Discharge Date: 04/16/24 Primary care physician: Cornell Ballard MD Consults: 04/14/24 14:19 Consult to Director Data Architecture Routine Comment: Discharge provider: Luisana Brantley DO Summary Hospital Course Date Patient Seen: 04/16/24 Time Patient Seen: 10:30 Diagnoses: Term dichorionic diamniotic twin gestation at 38+0wks malpresentation History of hemorrhage History of pre-eclampsia Hospital Course: 28yo [id number] admitted at 38+0wks for primary delivery. Her delivery was uncomplicated, and productive of a two viable infants, male and female. Her course was notable for asymptomatic anemia. On post-op day #2, she was ambulating, tolerating regular diet, voiding spontaneously with minimal lochia. Her pain was well controlled with oral medications, thus she was discharged to home on post-op day #2. Peripartum Data Infant Delivery Method: Section Procedures: External monitoring delivery Neuraxial anesthesia complications: none [place] 2: Gender: Female Disposition of : home 1: Gender: Male Disposition of : home Discharge Diagnosis (1) delivery, delivered, current hospitalization: Status: Acute (2) Dichorionic diamniotic twin gestation: Status: Acute (3) Acute postoperative anemia due to expected blood loss: Status: Acute Status at Discharge Cognitive/behavioral status at discharge: oriented Functional status at discharge: independent ambulation Overall status at discharge: patient is progressing back to baseline Time Spent with Patient Time attestation: Total time spent providing and/or coordinating discharge services: Time spent: Less than 30 minutes Objective Labs 04/15/24 06:10 04/14/24 10:30 Exam Vital Signs (past 8 hours): Oxygen Delivery Method Room Air Narrative Exam Narrative: vitals reviewed in OBIX, within normal parameters; BPs normotensive after delivery Const General: cooperative, healthy appearing, comfortable and No acute distress Resp Effort & Inspection: normal respiratory effort GI Inspection: normal to inspection Other: fundus firm and nontender at U-2 Skin General: no rashes or lesions noted Other: incision with Aquacel dressing with no strikethrough noted Neuro General: patient alert and patient awake Extrem General: normal to inspection, no pedal edema and no calf tenderness Psych Mood: congruent mood Affect: normal affect Discharge Plan Discharge Plan Patient Disposition: Home Provider Discharge Comment: Take ibuprofen 600-800mg every 6hrs and acetaminophen 650mg every 6hrs for pain. Use oxycodone 5mg every 4hrs as needed for severe pain. Take an oral iron supplement for your anemia for the next 2 months. Avoid lifting greater than 20lbs for at least 6 weeks. Avoid placing anything in the vagina for 6 weeks. Discharge orders & Medications Prescriptions: New oxycodone 5 mg Tablet 5 mg PO Q4H PRN (Reason: Pain, Moderate (4-6)) Qty: 14 0RF Continued DHA 200 mg capsule See Rx Instructions .ROUTE .COMPLEX Rx Instructions: per provider order Slow Fe 137 mg (45 mg iron) tablet extended release See Rx Instructions .ROUTE .COMPLEX Rx Instructions: per provider order Discontinued RSVPreF3 antigen-AS01E (PF) 120 mcg/0.5 mL suspension for reconstitution 0.5 ml IM ONCE Qty: 1 0RF Follow up/Referrals: Luisana Brantley DO [Physician] - 1 Week (Dr. Brantley in 1 week for incisional check. April 24, 2024 arrive at 1:45pm for a 2pm appointment. Dr. Brantley in 6 weeks appointment May 29, 2024 arrive at 10:45 for an 11:00am appointment.) Diet/Activity/Treatments Diet: Diet as Tolerated Activity: As tolerated. Skin/Wound/Dressing Care Report to your healthcare provider any signs of infection, such as:: chills, fever, increased pain, unusual drainage and unusual redness Dressing: We will remove the Aquacel in the office next week. You may shower normally. Visit Report/Discharge Packet Instructions: Depression, Hemorrhage, DI for , DI for Prescription Opioid Use Stand Alone Forms: Discharge: Care, Patient Portal/API, Stroke Signs & Symptoms Discharge Data Primary Care Provider: Cornell Ballard
== END 2024-04-16 15:58 | disposition home or self-care (01) | DRG 787 ==
PROVIDERS: Admitting Provider Student in an Organized Health Care Education/Training Program; PCP Family Medicine; Referring Provider Student in an Organized Health Care Education/Training Program; Visit Provider Student in an Organized Health Care Education/Training Program
PROC: 10D00Z1 Extraction of Products of Conception, Low, Open Approach (ICD-10-PCS; CPT 59514; principal; 2024-04-14 12:45)
DX: O30.043 Twin pregnancy, dichorionic/diamniotic, third trimester (principal); D62 Acute posthemorrhagic anemia; O90.81 Anemia of the puerperium; Z3A.38 38 weeks gestation of pregnancy; Z37.2 Twins, both liveborn; Z37.0 Single live birth
CPT/HCPCS: 36415; 59050; 80053; 85025; 86850; 86900; 86901; J0595; J0690; J1200; J1885; J2274